=== PATIENT | female | born 1995 | race Caucasian/White ===

== ENCOUNTER 2020-01-18 12:33 | Outpatient (CLI) | payer OTHER, SELFPAY ==
--- NOTE | ~2020-01-18 | US_ITS ---
EXAMINATION: US OB <= 14 weeks fetus DATE: 01/18/2020 13:07 INDICATION: Gestational dating TECHNIQUE: Real-time transabdominal obstetric ultrasound. FINDINGS: No prior studies for comparison. The uterus measures 11.2 x 9.1 x 9.1 cm. There is an intrauterine gestational sac, with pole id entified. The crown rump length measures 5.3 cm, which correlates with a estimated gestational age o f 12 weeks 0 days. heart tones are identified measuring 167. There is a septated 2.9 cm corpu s luteal cyst right ovary. IMPRESSION: 1. SL IUP with an EGA of 12 weeks, 0 days (EDC by current ultrasound of 08/01/2020). 2: Septated corpus luteal cyst right ovary measuring 2.9 cm. Reviewed, dictated and finalized at location A. IMPRESSION: 1. SL IUP with an EGA of 12 weeks, 0 days (EDC by current ultrasound of 020). 2: Septated corpus luteal cyst right ovary measuring 2.9 cm.
== END 2020-01-18 12:34 | disposition home or self-care (01) ==
LOC: ANHIMG 12:39
PROVIDERS: Visit Provider Student in an Organized Health Care Education/Training Program
DX: Z36.9 Encounter for antenatal screening, unspecified (principal); Z3A.12 12 weeks gestation of pregnancy
CPT/HCPCS: 76801

== ENCOUNTER 2020-03-14 17:07 | Outpatient (CLI) | payer OTHER, SELFPAY ==
[2020-03-14 18:02] LABS: Add Urine Microscopic? NO; Appearance Urine Clear (Clear); Bilirubin Urine Negative (Negative); Blood Urine Negative (Negative); Color Urine Colorless (Yellow); Glucose Urine UA Negative (Negative); Ketones Urine Negative (Negative); Leukocyte Esterase Ur Negative LEU/UL (NEGATIVE); Nitrate Urine Negative (Negative); Protein Urine Negative (Negative); Urobilinogen Urine Negative mg/dL (<2.0)
[2020-03-14 18:05] LABS: Specific Grav Ur 1.003 (1.001-1.035)
== END 2020-03-14 17:08 | disposition home or self-care (01) ==
PROVIDERS: Visit Provider Student in an Organized Health Care Education/Training Program
DX: Z34.90 Encounter for supervision of normal pregnancy, unspecified, unspecified trimester (principal)
CPT/HCPCS: 81003; 87086

== ENCOUNTER 2020-03-28 10:33 | Outpatient (CLI) | payer OTHER, SELFPAY ==
[2020-03-28 11:10] LABS: Basophils Percent Auto 0.3 % (0.2-1.2); Eosinophils Absolute Auto 0.1 K/mm3 (0-0.3); Eosinophils Percent Auto 0.7 % (0-4.4); Hematocrit 30.9 % (37.0-47.0); Hemoglobin 10.5 g/dL (12.0-15.0); Immature Granulocyte Absolute 0.03 K/mm3 (0.00-0.031); Immature Granulocyte Percent A 0.4 % (0-0.5); Lymphocytes Absolute Auto 0.95 K/mm3 (0.9-3.2); Lymphocytes Percent Auto 13.1 % (18.3-44.2); Mean Corpuscular Hemoglobin 32.4 pg (26-34); Mean Corpuscular Volume 95.4 fl (80-100); Mean Platelet Volume 10.8 fl (7.4-10.4); Monocytes Absolute Auto 0.3 K/mm3 (0.1-0.6); Monocytes Percent Auto 4.4 % (2.6-8.5); Neutrophils Absolute Auto 5.9 K/mm3 (1.3-6.7); Neutrophils Percent Auto 81.1 % (45.5-73.1); Platelet Count Result 159 k/mm3 (150-375); Red Blood Count 3.24 M/mm3 (4.2-5.4); Red Cell Distribution Width 12.8 % (11.5-14.5); White Blood Count 7.3 K/mm3 (4.5-10.0)
[2020-03-28 11:59] LABS: Hepatitis B Surface Antigen Negative (Negative); Rubella IgG Antibody 17.1 IU/ML
[2020-03-28 12:14] LABS: HIV 1/2 Ab P24 Ag Result Negative (Negative); Hepatitis C Virus Antibody Negative (Negative)
[2020-03-29 07:43] LABS: Rapid Plasma Reagin Non-Reactive (NonReactive)
[2020-04-02 12:20] LABS: Hematocrit 33.7 % (35.0-45.0); Hemoglobin 10.8 g/dL (11.7-15.5); MCH 33.3 pg (27.0-33.0); RDW 15.5 % (11.0-15.0); Red Blood Cell Count 3.24 Mill/uL (3.80-5.10)
== END 2020-03-28 10:34 | disposition home or self-care (01) ==
LOC: ANHLAB 10:35
PROVIDERS: Visit Provider Student in an Organized Health Care Education/Training Program
DX: Z34.90 Encounter for supervision of normal pregnancy, unspecified, unspecified trimester (principal)
CPT/HCPCS: 36415; 83021; 84443; 85025; 86592; 86703; 86762; 86787; 86803; 86850; 86900; 86901; 87340; 99212; G0432; G0463

== ENCOUNTER 2020-05-21 07:33 | Outpatient (CLI) | payer OTHER, SELFPAY ==
[2020-05-21 09:10] LABS: Basophils Percent Auto 0.3 % (0.2-1.2); Eosinophils Absolute Auto 0.1 K/mm3 (0-0.3); Eosinophils Percent Auto 0.8 % (0-4.4); Hematocrit 29.8 % (37.0-47.0); Hemoglobin 10.2 g/dL (12.0-15.0); Immature Granulocyte Absolute 0.02 K/mm3 (0.00-0.031); Immature Granulocyte Percent A 0.3 % (0-0.5); Immature Platelet Fraction Pct 6.1 % (0.9-11.2); Lymphocytes Absolute Auto 1.13 K/mm3 (0.9-3.2); Lymphocytes Percent Auto 15.2 % (18.3-44.2); Mean Corpuscular HGB Conc 34.2 g/dl (32-36); Mean Corpuscular Hemoglobin 31.7 pg (26-34); Mean Corpuscular Volume 92.5 fl (80-100); Mean Platelet Volume 11.1 fl (7.4-10.4); Monocytes Absolute Auto 0.4 K/mm3 (0.1-0.6); Monocytes Percent Auto 5.8 % (2.6-8.5); Neutrophils Absolute Auto 5.8 K/mm3 (1.3-6.7); Neutrophils Percent Auto 77.6 % (45.5-73.1); Platelet Count Result 134 k/mm3 (150-375); Red Blood Count 3.22 M/mm3 (4.2-5.4); Red Cell Distribution Width 12.2 % (11.5-14.5); White Blood Count 7.4 K/mm3 (4.5-10.0)
[2020-05-21 09:19] LABS: Glucose 1 Hour PP 50gm Dose 88 mg/dL
== END 2020-05-21 07:34 | disposition home or self-care (01) ==
LOC: ANHLAB 07:34
PROVIDERS: Visit Provider Student in an Organized Health Care Education/Training Program
DX: Z34.02 Encounter for supervision of normal first pregnancy, second trimester (principal)
CPT/HCPCS: 36415; 82947; 85025; 85055; 99212; G0463

== ENCOUNTER 2020-07-05 08:40 | Outpatient (CLI) | payer OTHER, SELFPAY ==
[2020-07-05 09:22] LABS: Basophils Percent Auto 0.2 % (0.2-1.2); Eosinophils Absolute Auto 0.1 K/mm3 (0-0.3); Eosinophils Percent Auto 0.6 % (0-4.4); Hematocrit 32.9 % (37.0-47.0); Hemoglobin 11.2 g/dL (12.0-15.0); Immature Granulocyte Absolute 0.04 K/mm3 (0.00-0.031); Immature Granulocyte Percent A 0.5 % (0-0.5); Lymphocytes Absolute Auto 1.29 K/mm3 (0.9-3.2); Lymphocytes Percent Auto 14.7 % (18.3-44.2); Mean Corpuscular Hemoglobin 31.9 pg (26-34); Mean Corpuscular Volume 93.7 fl (80-100); Monocytes Absolute Auto 0.5 K/mm3 (0.1-0.6); Monocytes Percent Auto 5.4 % (2.6-8.5); Neutrophils Absolute Auto 6.9 K/mm3 (1.3-6.7); Neutrophils Percent Auto 78.6 % (45.5-73.1); Platelet Count Result 139 k/mm3 (150-375); Red Blood Count 3.51 M/mm3 (4.2-5.4); White Blood Count 8.8 K/mm3 (4.5-10.0)
[2020-07-05 10:00] LABS: HIV 1/2 Ab P24 Ag Result Negative (Negative)
[2020-07-06 11:13] LABS: Rapid Plasma Reagin Non-Reactive (NonReactive)
== END 2020-07-05 08:41 | disposition home or self-care (01) ==
LOC: ANHLAB 08:43
PROVIDERS: PCP Student in an Organized Health Care Education/Training Program; Visit Provider Student in an Organized Health Care Education/Training Program
DX: Z34.90 Encounter for supervision of normal pregnancy, unspecified, unspecified trimester (principal)
CPT/HCPCS: 36415; 85025; 86592; 86703; 99212; G0432; G0463

== ENCOUNTER 2020-07-29 15:37 | Inpatient (IN) | payer OTHER, MEDICAID, SELFPAY ==
[2020-07-29] VITALS (64 sets, daily range): BP systolic 97–132; BP diastolic 57–88; PULSE 58–104; TEMP 36.8–37.4; O2SAT 98–100
[2020-07-29 17:53] LABS: Basophils Percent Auto 0.1 % (0.2-1.2); Eosinophils Percent Auto 0.1 % (0-4.4); Hematocrit 37.6 % (37.0-47.0); Hemoglobin 13.2 g/dL (12.0-15.0); Immature Granulocyte Absolute 0.04 K/mm3 (0.00-0.031); Immature Granulocyte Percent A 0.3 % (0-0.5); Lymphocytes Absolute Auto 1.11 K/mm3 (0.9-3.2); Lymphocytes Percent Auto 7.8 % (18.3-44.2); Mean Corpuscular HGB Conc 35.1 g/dl (32-36); Mean Corpuscular Hemoglobin 32.5 pg (26-34); Mean Corpuscular Volume 92.6 fl (80-100); Mean Platelet Volume 12.5 fl (7.4-10.4); Monocytes Absolute Auto 0.7 K/mm3 (0.1-0.6); Monocytes Percent Auto 5.1 % (2.6-8.5); Neutrophils Absolute Auto 12.3 K/mm3 (1.3-6.7); Neutrophils Percent Auto 86.6 % (45.5-73.1); Platelet Count Result 155 k/mm3 (150-375); Red Blood Count 4.06 M/mm3 (4.2-5.4); White Blood Count 14.2 K/mm3 (4.5-10.0)
[2020-07-29] MEDS: AMPICILLIN 2 GM/NS 100 ML 2 GM/100 ML BAG IVPB (17:57)
[2020-07-29] MEDS: LACTATED RINGERS 1,000 ML 125 ML IV CONT ×2 (17:57→20:58)
[2020-07-29 18:10] LABS: Amphetamine Screen Urine Negative (Negative); Barbiturate Screen Urine Negative (Negative); Benzodiazepines Screen Urine Negative (Negative); Cannabinoid Screen Urine Positive (Negative); Cocaine Screen Urine Negative (Negative); Methadone Screen Urine Negative (Negative); Opiate Screen Urine Negative (Negative); Phencyclidine Screen Urine Negative (Negative)
--- NOTE | 2020-07-29 18:33 | LDADM ---
This patient, Tamika Bone, was admitted to Labor/Delivery/Recovery 105 on 07/29/20 at 15:37. Plans for labor, pain management and were discussed with patient. Patient/family oriented to hospital policies and general routines including ID bracelet, bed and alarms, visiting hours, pain management, procedures, bathroom and other care routines, personal items, smoking policy, room service/diet and guest tray routines, security routines,call light, and visiting hours. Patient/Family are encouraged to report perceived risks to care and to ask questions if they do not understand what they are told or what they should do. See OBIX for further documentation.
--- NOTE | 2020-07-29 20:01 | WPDANESEPP ---
Anes - Eval Pre Procedure Procedure: labor epidural Date/Time: 07/29/20 20:01 Surgeon: marvin Pre Op Diagnosis: Labor Patient Data Age: 24 Gender: F Height: Weight: Last Vital Signs Temp 36.8 C 07/29/20 19:29 Pulse 61 07/29/20 19:19 BP 132/81 07/29/20 19:19 Allergies Allergy/AdvReac Type Severity Reaction Status Date / Time No Known Allergies Allergy Verified 07/26/20 09:10 Home Medications Medication Instructions Recorded Confirmed Type buprenorphine HCl 2 mg sublingual 2 mg SUBLINGUAL DAILY 01/16/20 History tablet vits 75-iron 28 mg-folic pkg PO 01/16/20 History acid 800 mcg-omega-3 oral combo pack ondansetron HCl 4 mg tablet 4 mg PO Q8H PRN #30 tablet 04/26/20 04/26/20 Rx ferrous sulfate 325 mg (65 mg 325 mg PO DAILY #90 tablet 05/22/20 05/22/20 Rx iron) tablet Laboratory Tests 07/29/20 07/29/20 07/29/20 17:36 17:36 17:36 WBC 14.2 K/mm3 H K/mm3 (4.5-10.0) RBC 4.06 M/mm3 L M/mm3 (4.2-5.4) Hgb 13.2 g/dL g/dL (12.0-15.0) Hct 37.6 % % (37.0-47.0) MCV 92.6 fl fl (80-100) MCH 32.5 pg pg (26-34) MCHC 35.1 g/dl g/dl (32-36) RDW 13.0 % % (11.5-14.5) Plt Count 155 k/mm3 k/mm3 (150-375) MPV 12.5 fl H fl (7.4-10.4) Immature Gran % (Auto) 0.3 % % (0-0.5) Neut % (Auto) 86.6 % H % (45.5-73.1) Lymph % (Auto) 7.8 % L % (18.3-44.2) Banner % (Auto) 5.1 % % (2.6-8.5) Eos % (Auto) 0.1 % % (0-4.4) Baso % (Auto) 0.1 % L % (0.2-1.2) Lymph # (Auto) 1.11 K/mm3 K/mm3 (0.9-3.2) Banner # (Auto) 0.7 K/mm3 H K/mm3 (0.1-0.6) Eos # (Auto) 0.0 K/mm3 K/mm3 (0-0.3) Baso # (Auto) 0.0 K/mm3 K/mm3 (0.0-0.1) Abs Immat Gran (auto) 0.04 K/mm3 H K/mm3 (0.00-0.031) Absolute Neuts (auto) 12.3 K/mm3 H K/mm3 (1.3-6.7) Absolute Nucleated RBC 0.0 K/mm3 K/mm3 (0.0-0.012) Nucleated RBC % 0.0 % % (0.0-0.2) Urine Opiates Screen Urine Methadone Screen Ur Barbiturates Screen Ur Phencyclidine Scrn Ur Amphetamine Screen U Benzodiazepines Scrn Urine Cocaine Screen U Cannabinoids Screen RPR Pending Blood Type A Positive Antibody Screen Negative 07/29/20 17:36 WBC RBC Hgb Hct MCV MCH MCHC RDW Plt Count MPV Immature Gran % (Auto) Neut % (Auto) Lymph % (Auto) Banner % (Auto) Eos % (Auto) Baso % (Auto) Lymph # (Auto) Banner # (Auto) Eos # (Auto) Baso # (Auto) Abs Immat Gran (auto) Absolute Neuts (auto) Absolute Nucleated RBC Nucleated RBC % Urine Opiates Screen Negative (Negative) Urine Methadone Screen Negative (Negative) Ur Barbiturates Screen Negative (Negative) Ur Phencyclidine Scrn Negative (Negative) Ur Amphetamine Screen Negative (Negative) U Benzodiazepines Scrn Negative (Negative) Urine Cocaine Screen Negative (Negative) U Cannabinoids Screen Positive A (Negative) RPR Blood Type Antibody Screen Patient hx anesthesia problems: none Family hx anesthesia problems: none PMFSH Past Medical History Medical History Anxiety History of opioid abuse Marijuana use Surgical History Surgical History No pertinent past surgical history Family History Family History Grandparent Diabetes mellitus Grandparent Crohn disease Grandparent Spinal stenosis Mother Spinal stenosis Social History Social History (Reviewed 07/26/20 @ 09:11 by Sayra Braga
--- NOTE | 2020-07-29 21:08 | PM.IMHP ---
H&P: HPI History of Present Illness Date/Time: 07/29/20 21:08 Patient 38 6/7 weeks by LMP 10/31/19 with an EDC 08/06/20 consistent with 12 week ultrasound. presented to L and D for decrease movement. Tracing significant for three moderate variables in 20 minutes.She was also having moderate contractions every 5 min. She was recommended for admission due to nonreassuring tracing. Her cervical exam was 2/80%. She appears to be in early labor. PNC sigificant for history of opiod abuse. She has been on buprenorphion for over five years. Also history of marijuana use and tobacco use during . Mild thrombocytopenia the lowest platelet 134 in May. 139 in Jun. labs reviewed. GBS positive. Chief complaint: Labor Narrative: Tamika Bone is a 24 year old female Review of Systems Review of Systems: All systems reviewed & are unremarkable except as noted in HPI and below Constitutional: Constitutional: Reports no additional constitutional complaints and Denies headache(s) ENT: Reports system reviewed and no additional complaints, except as documented and Denies headache(s) Cardiovascular: Cardiovascular: Denies chest pain and Denies dyspnea Respiratory: Respiratory: Denies dyspnea Gastrointestinal: Gastrointestinal: Reports no additional gastrointestinal complaints Genitourinary: Genitourinary: Reports amenorrhea Musculoskeletal: Musculoskeletal: Reports no additional musculoskeletal complaints Neurologic: Denies headache(s) Psychiatric: Psychiatric: Reports no additional psychiatric complaints PMFSH Past Medical History Medical History Anxiety History of opioid abuse Marijuana use Surgical History Surgical History No pertinent past surgical history Family History Family History Grandparent Diabetes mellitus Grandparent Crohn disease Grandparent Spinal stenosis Mother Spinal stenosis Social History Social History Smoking status: Current every day smoker Tobacco type: cigarettes Second hand tobacco smoke exposure: No Additional smoking assessment comments: Pt smokes cigarettes and marijuana. Pt has open conversations with Alcohol intake: former Substance use: current Substance use type: marijuana and opiates Other substance usage details: H/O OF OPIOID ABUSE--HAS BEEN TAKING BUPRENORPHINE FOR THE LAST 5 YEARS Last use: 07/07/20 Spiritual care concerns: No Meds Home Medications and Allergies Home Medications Medication Instructions Recorded Confirmed Type buprenorphine HCl 2 mg sublingual 2 mg SUBLINGUAL DAILY 01/16/20 History tablet vits 75-iron 28 mg-folic pkg PO 01/16/20 History acid 800 mcg-omega-3 oral combo pack ondansetron HCl 4 mg tablet 4 mg PO Q8H PRN #30 tablet 04/26/20 04/26/20 Rx ferrous sulfate 325 mg (65 mg 325 mg PO DAILY #90 tablet 05/22/20 05/22/20 Rx iron) tablet Allergies Allergy/AdvReac Type Severity Reaction Status Date / Time No Known Allergies Allergy Verified 07/26/20 09:10 Vital Signs Vital Signs - 24 hr 07/29/20 16:04 07/29/20 19:19 07/29/20 19:29 Temperature 99.3 F 98.2 F Pulse Rate 61 Blood Pressure 132/81 Pulse Oximetry 07/29/20 20:10 07/29/20 20:21 07/29/20 20:26 Temperature Pulse Rate 62 67 Blood Pressure 118/64 118/70 Pulse Oximetry 100 100 07/29/20 20:31 07/29/20 20:34 07/29/20 20:35 Temperature Pulse Rate 90 79 82 Blood Pressure 128/72 107/88 127/69 Pulse Oximetry 100 07/29/20 20:36 07/29/20 20:38 07/29/20 20:39 Temperature Pulse Rate 81 Blood Pressure 116/57 L Pulse Oximetry 100 100 07/29/20 20:40 07/29/20 20:43 07/29/20 20:44 Temperature Pulse Rate 65 87 Blood Pressure 130/67 123/69 Pulse Oximetry 100 07/29/20 20:45 1
--- NOTE | 2020-07-29 21:25 | PHAR ---
Pharmacy verified home med Buprenorphine 2 mg SL tablet per bottle: dissolve one tablet under tongue three times daily per nurse: patient uses half tablet instead of whole tablet
--- NOTE | 2020-07-29 21:35 | P.PNOB_ITS ---
OB - PN: Subj Subjective Date/time seen: 07/29/20 21:35 FHT 130 Cat 1, ctx moderate q 2. cervix reported at 2.5. She request epidural. Continue expectant management since cervical change. OB - PN: Obj Data Labs CBC & Chem 7: 07/29/20 17:36 Labs: Laboratory Results - last 24 hr 07/29/20 07/29/20 07/29/20 17:36 17:36 17:36 WBC 14.2 H RBC 4.06 L Hgb 13.2 Hct 37.6 MCV 92.6 MCH 32.5 MCHC 35.1 RDW 13.0 Plt Count 155 MPV 12.5 H Immature Gran % (Auto) 0.3 Neut % (Auto) 86.6 H Lymph % (Auto) 7.8 L Chambers % (Auto) 5.1 Eos % (Auto) 0.1 Baso % (Auto) 0.1 L Lymph # (Auto) 1.11 Chambers # (Auto) 0.7 H Eos # (Auto) 0.0 Baso # (Auto) 0.0 Abs Immat Gran (auto) 0.04 H Absolute Neuts (auto) 12.3 H Absolute Nucleated RBC 0.0 Nucleated RBC % 0.0 Urine Opiates Screen Negative Urine Methadone Screen Negative Ur Barbiturates Screen Negative Ur Phencyclidine Scrn Negative Ur Amphetamine Screen Negative U Benzodiazepines Scrn Negative Urine Cocaine Screen Negative U Cannabinoids Screen Positive A Blood Type A Positive Antibody Screen Negative OB - PN A/P Time Spent With Patient Time: Total time spent is greater than 50% in coordination of care (as documented) at patient's floor/unit and/or counseling patient:
[2020-07-29] MEDS: AMPICILLIN 1 GM/NS 50 ML 1 GM/50 ML BAG IVPB (22:02)
[2020-07-29] MEDS: OXYTOCIN 30 UNITS/NS 500 ML 30 UNITS/500 ML BAG IV CONT (23:59)
[2020-07-30] VITALS (160 sets, daily range): BP systolic 87–135; BP diastolic 52–101; PULSE 53–102; RESP 16–18; TEMP 36.1–36.9; O2SAT 98–100
[2020-07-30] MEDS: AMPICILLIN 1 GM/NS 50 ML 1 GM/50 ML BAG IVPB ×2 (03:06→07:02)
[2020-07-30] MEDS: LACTATED RINGERS 1,000 ML 125 ML IV CONT (03:07)
--- NOTE | 2020-07-30 08:02 | PM.OBPNLAB ---
Pain Control Date/time seen: 07/30/20 08:02 Patient doing well. Comfortable with epidural. SVE 5-6//-1. AROM, clear fluid noted. EFM with occ variable decelerations after AROM. Otherwise, reassuring. Will continue pitocin.
[2020-07-30 08:22] LABS: Rapid Plasma Reagin Non-Reactive (NonReactive)
[2020-07-30] MEDS: ONDANSETRON INJ 4 MG/2 ML VIAL IV PUSH (08:46)
--- NOTE | 2020-07-30 11:18 | PM.OBPRVD ---
OB - Delivery Note Procedure Delivery date: 07/30/20 Procedure: Patient is a 24-year-old now who presented to Labor and delivery on 07/29/20 at 38 weeks and 6 days gestation with complaints of decreased movement. Patient was noted to be susannah approximately every 5 minutes. monitoring showed variable decelerations. Due to nonreassuring tracing in the setting of early labor, decision was made to admit patient to labor and delivery and proceed with induction/augmentation. Initial cervical exam was 2 cm dilated 80% effaced. Induction of labor was started with Pitocin. Patient was GBS positive and antibiotics were administered for GBS prophylaxis. Pitocin was continued to be titrated throughout the evening and morning of 07/30/2020. Patient made progress cervical change. Variable decelerations as well as occasional late decelerations were noted on monitoring, however, the tracing recovered after each episode. Patient requested an epidural for pain management which was placed without difficulty. Artificial rupture membranes was performed at 7:56 a.m. Clear amniotic fluid was noted. Cervical exam was approximately 6 cm dilated. Patient continued to make progressive cervical change and was noted to be fully dilated at 10:36 a.m. Patient was encouraged to push and found to be pushing well. She was prepped and draped for delivery. At 10:47 a.m., patient delivered infant head atraumatically without difficulty in LETHA presentation. Occiput restituted to maternal left side. Compound presentation was noted as a hand delivered alongside face. A nuchal cord x1 was noted and reduced. With subsequent push, 's neck, shoulders, rest of body were delivered without difficulty. was crying spontaneously. Nose and mouth were suctioned with bulb suction. The infant was placed on maternal abdomen with care was assumed by waiting pediatric staff. Delayed cord clamping was performed for approximately 60 seconds. The cord was clamped and cut. A segment of cord was collected for cord gases. Cord blood was collected. The placenta was delivered spontaneous and intact. On inspection, a second-degree perineal laceration was noted. This laceration was repaired with 2-0 and 3-0 Vicryl in the usual fashion. Excellent hemostasis was noted. Uterine fundus was noted to be firm with bimanual massage. The patient was cleansed and dried. was a live-born male , Apgars 8 and 9, weighing 7 lb 5 oz. Routine care to continue. events: Labor Induction Induction method: per pitocin protocol Delivery augmentation: rupture of membranes Delivery monitor: external FHT and external uterine Route of delivery: Laceration description: Perineal - 2nd Degree Delivery repair: vicryl (2-0 and 3-0 vicryl) Specimen: Yes (cord blood, cord gases, and placenta) Estimated blood loss (mL): 250 Anesthesia type: Epidural Disposition: floor Complications: No immediate complications [place] Baby Date of : 07/30/20 Time of : 10:47 Weeks of gestation at delivery: 39 Infant gender: Male Weight (pounds): 7 Weight (ounces): 5 presentation: vertex position: Left Occiput Anterior Placenta delivery description: Spontaneous cord vessel description: 3 Vessels, Nuchal Cord (x1) and Clamped/Cut score one minute: 8 score five minutes: 9
[2020-07-30] MEDS: OXYTOCIN 30 UNITS/NS 500 ML 30 UNITS/500 ML BAG 125 UNITS IV CONT (11:25)
[2020-07-30] MEDS: WITCH HAZEL 40 PADS 1 PAD TOPICAL (12:36)
[2020-07-30] MEDS: ACETAMINOPHEN 325 MG TABLET 650 MG PO ×2 (12:36→19:49)
[2020-07-30] MEDS: BENZOCAINE 20% AER SPR (*SP) 56 GM CAN 1 SPRAY TOPICAL (12:36)
--- NOTE | 2020-07-30 15:24 | PCCCNOTE ---
Care Coordination. Pt. referred to [facility] for postive UDS for marijuana and history of opiate use about 5 years ago. Met with pt. and FOB at bedside. Pt. reports having all necessary baby care items, setup with WIC, and has food stamps. She reports plans to return home with FOB and her mother plans to stay with them for about a month. Pt. reports seeing Dr. Stein who prescribes her subutex for the last 5 years. She has transitioned down to 1mg and reports plans to come off of it soon. She denies needs for counseling and reports Dr. Stein and his PA, Parker, are supportive and 'residential counselor' her as well. Pt. reports this is her first baby. She denies substance abuse or community resource information needed. Spoke with Zach Escobar from [facility] Hotline who documented pt.'s situation and will not be taking a report unless infant meconium is positive for something other than THC (Intake ID#[id number]).
[2020-07-31] MEDS: ACETAMINOPHEN 325 MG TABLET 650 MG PO (05:17)
[2020-07-31] MEDS: DOCUSATE SODIUM 100 MG CAPSULE PO ×2 (07:12→16:05)
[2020-07-31] MEDS: IBUPROFEN 600 MG TABLET PO ×2 (07:12→16:17)
[2020-07-31 08:00] VITALS: BP 117/72; PULSE 73; RESP 18; TEMP 36.4; O2SAT 100
--- NOTE | 2020-07-31 08:02 | P.PNOB_ITS ---
OB - PN: Subj Subjective Date/time seen: 07/31/20 08:02 Patient doing well. Pain well controlled with medication. Minimal-moderate lochia. Denies any headache, chest pain, SOB, N/V. OB - PN: Obj Data Labs CBC & Chem 7: 07/29/20 17:36 Labs: Laboratory Results - last 24 hr 07/29/20 17:36 RPR Non-reactive OB - PN A/P Assessment and Plan (1) Normal spontaneous vaginal delivery: Code(s): O80 - Encounter for full-term uncomplicated delivery Status: Acute Assessment and Plan: PPD#1 Doing well Continue routine care Pain management PRN Anticipate dc home tomorrow Time Spent With Patient Time: Total time spent is greater than 50% in coordination of care (as documented) at patient's floor/unit and/or counseling patient: Review of Systems Constitutional: Constitutional: Reports as per HPI and Reports no additional constitutional complaints Genitourinary: Genitourinary: Reports no additional female genitourinary co mplaints and Reports as per HPI Exam Const: General: cooperative, healthy appearing, comfortable and no acute distress GI: Inspection: non-distended GI Palp: Yes Soft to palpation and No Tenderness to palpation present (GI) Other: fundus firm below umbilicus Extrem: Right lower extremity: no edema Left lower extremity: no edema Other: no calf tenderness
[2020-07-31 09:24] LABS: Hematocrit 29.9 % (37.0-47.0); Hemoglobin 10.2 g/dL (12.0-15.0)
--- NOTE | 2020-07-31 11:16 | WPDANLDPN2 ---
Anes-Prog Note L&D Date/Time: 07/31/20 11:16 Comfortable throughout: labor and delivery Neuraxial method: epidural Epidural/Spinal procedure site: clean & non-tender Neuro status: Neuro function grossly intact. Cardiovascular status: normal Respiratory status: normal Airway patency: baseline Mental status: baseline Post-Op hydration status: normal Vital Signs: Last Vital Signs Temp 36.4 C L 07/31/20 08:00 Pulse 73 07/31/20 08:00 Resp 18 07/31/20 08:00 BP 117/72 07/31/20 08:00 Pulse Ox 100 07/31/20 08:00 Pain score (VAS): 0 Post-procedural complaints: none Patient feedback: Patient satisfied with anesthetic care.
[2020-07-31 19:45] VITALS: BP 104/60; PULSE 75; RESP 18; TEMP 36.8; O2SAT 98
[2020-08-01] MEDS: IBUPROFEN 600 MG TABLET PO ×3 (04:45→18:15)
[2020-08-01] MEDS: ACETAMINOPHEN 325 MG TABLET 650 MG PO ×2 (07:40→16:10)
[2020-08-01] MEDS: DOCUSATE SODIUM 100 MG CAPSULE PO ×2 (07:40→16:10)
[2020-08-01] MEDS: TETANUS,DIPHTHERIA,AC PERTUSSIS ADULT (0.5 ML) BOOSTRIX IM (07:41)
[2020-08-01 08:15] VITALS: BP 122/77; PULSE 68; RESP 16; TEMP 36.4; O2SAT 100
--- NOTE | 2020-08-01 09:44 | P.PNOB_ITS ---
OB - PN: Subj Subjective Date/time seen: 08/01/20 09:44 Patient doing well. Pain/cramping well controlled with medication. Minimal lochia. Denies any headache, chest pain, SOB, N/V. OB - PN: Obj Data Labs CBC & Chem 7: 07/31/20 09:05 OB - PN A/P Assessment and Plan (1) Normal spontaneous vaginal delivery: Code(s): O80 - Encounter for full-term uncomplicated delivery Status: Acute Assessment and Plan: PPD#2 patient doing well dc home in stable condition emergency precautions reviewed f/u in office in 4-6 weeks for visit Time Spent With Patient Time: Total time spent is greater than 50% in coordination of care (as doc umented) at patient's floor/unit and/or counseling patient: Review of Systems Review of Systems: All systems reviewed & are unremarkable except as noted in HPI and below Exam Const: General: cooperative, healthy appearing, comfortable and no acute distress GI: Inspection: normal to inspection and non-distended GI Palp: Yes Soft to palpation and No Tenderness to palpation present (GI) Other: fundus firm below umbilicus Extrem: Right lower extremity: no edema Left lower extremity: no edema Other: no calf tenderness
--- NOTE | 2020-08-01 10:14 | PM.OBDSVD ---
DS: Admitting Diagnosis Admitting Diagnosis Admitting Diagnosis: Labor OB - DS: Summary OB Procedures : None OB Procedures Intrapartum: Spontaneous Vag Delivery OB Procedures: : None Time Spent with Patient Time attestation: Total time spent providing and/or coordinating discharge services: DS: Data Data Completed and Pending Pending studies at discharge: Pending at discharge 07/30/20 11:43 Surgical [PTH] Routine Discharge Plan Discharge Attending physician on discharge: Valencia Dodson Discharging Clinician: Valencia Dodson Anticipated Discharge Date/Time: 08/01/20 10:15 Patient Disposition: Home, Self-Care Activity: as tolerated and pelvic rest Diet: regular Discharge Instructions: Call office ([phone]) to schedule a visit in 4-6 weeks. You may take Ibuprofen 600mg every 6 hours as needed for pain. Pain medication may make you constipated. It may be helpful to take an [id number] stool softener, such as Colace and/or Senokot, along with the pain medication to help lessen constipation. Call office or go to ED for pain not controlled with medication, headache, chest pain, shortness of breath, fever, chills, persistent nausea or vomiting, severe abdominal pain, heavy vaginal bleeding >2 pads/hour, foul vaginal discharge or odor, or problems with your breasts. Patient Instructions: Antibiotic Form, How to Stop Smoking (GEN) Stand Alone Forms: General Discharge Information Follow-up/Referrals: Valencia Dodson MD [Primary Care Provider] - Discharge Medications: Continued One A Day Women's DHA 28 mg iron- 800 mcg combo pack PO RF: 0 buprenorphine HCl 2 mg tablet, sublingual 2 mg SUBLINGUAL DAILY RF: 0 Discontinued ondansetron HCl [Zofran] 4 mg tablet 4 mg PO Q8H PRN (Reason: nausea and vomiting) Qty: 30 RF: 0 ferrous sulfate 325 mg (65 mg iron) tablet 325 mg PO DAILY Qty: 90 RF: 0 Date of admission: 07/29/20 15:37 Primary Care Provider: Valencia Dodson Admitting Provider: Valencia Dodson Attending physician on admission: Valencia Dodson Condition: Stable
[2020-08-01] MEDS: WITCH HAZEL 40 PADS 1 PAD TOPICAL (12:37)
[2020-08-01] MEDS: BENZOCAINE 20% AER SPR (*SP) 56 GM CAN 1 SPRAY TOPICAL (18:15)
== END 2020-08-01 18:15 | disposition home or self-care (01) | DRG 806 ==
LOC: ANHLDR 07-30 14:44 → ANHOB2 07-30 15:18
PROVIDERS: Admitting Provider Obstetrics & Gynecology; PCP Student in an Organized Health Care Education/Training Program; Visit Provider Student in an Organized Health Care Education/Training Program
DX: O36.8130 Decreased fetal movements, third trimester, not applicable or unspecified (principal); O99.12 Other diseases of the blood and blood-forming organs and certain disorders involving the immune mechanism complicating childbirth; Z37.0 Single live birth; O99.324 Drug use complicating childbirth; O70.1 Second degree perineal laceration during delivery; O99.334 Smoking (tobacco) complicating childbirth; F17.210 Nicotine dependence, cigarettes, uncomplicated; O99.824 Streptococcus B carrier state complicating childbirth; O32.6XX0 Maternal care for compound presentation, not applicable or unspecified; O69.1XX0 Labor and delivery complicated by cord around neck, with compression, not applicable or unspecified; D69.6 Thrombocytopenia, unspecified; O76 Abnormality in fetal heart rate and rhythm complicating labor and delivery; Z3A.38 38 weeks gestation of pregnancy; O36.8330 Maternal care for abnormalities of the fetal heart rate or rhythm, third trimester, not applicable or unspecified; F12.90 Cannabis use, unspecified, uncomplicated
CPT/HCPCS: 36415; 80307; 85014; 85018; 85025; 86592; 86850; 86900; 86901; 88307; 90715; A9270; J0290; J2405; J2590; J2795; J7120

== ENCOUNTER 2022-12-17 08:39 | Emergency (ER) | payer OTHER, SELFPAY ==
[2022-12-17 08:48] VITALS: BP 124/71; PULSE 96; RESP 16; TEMP 36.8; O2SAT 100
--- NOTE | 2022-12-17 09:10 | ED.GENADULT ---
HPI - General Adult General Chief complaint: Dental/Oral Stated complaint: FACIAL SWELLING/PAIN S/P DENTAL Time Seen by Provider: 12/17/22 09:01 Source: patient Mode of arrival: ambulatory Limitations: no limitations History of Present Illness HPI narrative: Patient is a 26-year-old female that had 3 crowns put on Thursday to teeth 18 through 20. States jaw began to swell last night unable to sleep due to pain. Tender with eating, states that happen when the temporary crowns were on as well. Call dentist last night in the ED and they did not returned her phone sunil. l Related Data Allergies Allergy/AdvReac Type Severity Reaction Status Date / Time No Known Allergies Allergy Verified 12/17/22 08:58 Review of Systems Review of Systems: All systems reviewed & are unremarkable except as noted in HPI and below Constitutional: Constitutional: Denies body ache(s), Denies fever(s), Denies headache(s), Denies malaise and Denies weakness Eyes: Eyes: Reports no additional eye complaints and Denies loss of vision ENT: Reports system reviewed and no additional complaints, except as documented, Reports dental pain, Denies otalgia, Denies headache(s), Denies nasal discharge, Denies sinus pain and Denies sore throat Cardiovascular: Cardiovascular: Reports no additional cardiovascular complaints, Denies chest pain, Denies irregular heart rhythm and Denies dyspnea Respiratory: Respiratory: Reports no additional respiratory complaints and Denies dyspnea Gastrointestinal: Gastrointestinal: Reports no additional gastrointestinal complaints, Denies abdominal pain, Denies melena, Denies hematochezia, Denies diarrhea, Denies nausea and Denies vomiting Musculoskeletal: Musculoskeletal: Reports no additional musculoskeletal complaints, Denies back pain, Denies myalgias and Denies arthralgias Integumentary/Breasts: Skin/Breast: Reports system reviewed and no additional complaints, except as docu, Denies pruritus and Denies rash Neurologic: Reports system reviewed and no additional complaints, except as documented, Denies headache(s), Denies loss of vision and Denies weakness Psychiatric: Psychiatric: Reports no additional psychiatric complaints PMFSH Past Medical History Medical History Anxiety History of opioid abuse Marijuana use Surgical History Surgical History No pertinent past surgical history Family History Family History Grandparent Diabetes mellitus Grandparent Crohn disease Grandparent Spinal stenosis Mother Spinal stenosis Social History Social History Smoking status: Current every day smoker Tobacco type: cigarettes Second hand tobacco smoke exposure: No Additional smoking assessment comments: Pt smokes cigarettes and marijuana. Pt has open conversations with MD Alcohol intake: former Substance use: current Substance use type: marijuana and opiates Other substance usage details: H/O OF OPIOID ABUSE--HAS BEEN TAKING BUPRENORPHINE FOR THE LAST 5 YEARS Last use: 07/07/20 Spiritual care concerns: No Comments At time of signature, agree with nursing past medical, surgical, social and family history. There is no relevant family history pertinent to the presenting complaint. Exam Const: General: cooperative, healthy appearing, comfortable, no acute distress and well nourished Nutritional Appearance: well nourished Orientation/consciousness: patient oriented x3 Limitations: no limitations HENMT: Head: normal to inspection, normocephalic and atraumatic Ears: external ears normal Face/Nose/Sinus: Normal external nose present, normal facial exam and face symmetric Face and sinus: normal facial exam, face symmetric, edema on the left mandible and fluctuance Face images: 1. area of fluctuance, no induration, erythema, or warmth. No op
== END 2022-12-17 09:20 | disposition home or self-care (01) ==
PROVIDERS: Emergency Provider Nurse Practitioner Family
DX: K04.7 Periapical abscess without sinus (principal); F17.210 Nicotine dependence, cigarettes, uncomplicated; Z98.811 Dental restoration status
CPT/HCPCS: 99213; G0463

== ENCOUNTER 2023-12-04 12:24 | Outpatient (CLI) | payer OTHER, SELFPAY ==
[2023-12-04 14:06] LABS: Basophils Percent Auto 0.1 % (0.2-1.2); Eosinophils Absolute Auto 0.1 K/mm3 (0-0.3); Eosinophils Percent Auto 0.8 % (0-4.4); Hematocrit 32.9 % (37.0-47.0); Immature Granulocyte Absolute 0.02 K/mm3 (0.00-0.031); Immature Granulocyte Percent A 0.2 % (0-0.5); Lymphocytes Absolute Auto 1.26 K/mm3 (0.9-3.2); Lymphocytes Percent Auto 13.7 % (18.3-44.2); Mean Corpuscular HGB Conc 33.4 g/dl (32-36); Mean Corpuscular Hemoglobin 30.7 pg (26-34); Mean Corpuscular Volume 91.9 fl (80-100); Mean Platelet Volume 10.6 fl (7.4-10.4); Monocytes Absolute Auto 0.4 K/mm3 (0.1-0.6); Monocytes Percent Auto 4.2 % (2.6-8.5); Neutrophils Absolute Auto 7.5 K/mm3 (1.3-6.7); Platelet Count Result 190 k/mm3 (150-375); Red Blood Count 3.58 M/mm3 (4.2-5.4); Red Cell Distribution Width 12.6 % (11.5-14.5); White Blood Count 9.2 K/mm3 (4.5-10.0)
[2023-12-04 18:33] LABS: Hepatitis B Surface Antigen Negative (Negative)
[2023-12-04 18:37] LABS: HIV 1/2 Ab P24 Ag Result Negative (Negative)
[2023-12-04 18:46] LABS: Hepatitis C Virus Antibody Negative (Negative)
[2023-12-04 21:05] LABS: Hemoglobin A1C 4.9 % (<5.7)
[2023-12-07 15:33] LABS: Rapid Plasma Reagin Non-Reactive (NonReactive)
== END 2023-12-04 12:25 | disposition home or self-care (01) ==
PROVIDERS: Visit Provider Obstetrics & Gynecology
DX: Z36.89 Encounter for other specified antenatal screening (principal); Z31.430 Encounter of female for testing for genetic disease carrier status for procreative management; Z36.0 Encounter for antenatal screening for chromosomal anomalies
CPT/HCPCS: 36415; 81220; 81243; 81420; 83036; 85025; 86592; 86703; 86762; 86803; 86850; 86900; 86901; 87340; 88264; 99212; G0432; G0463

== ENCOUNTER 2024-05-05 08:09 | Outpatient (CLI) | payer OTHER, SELFPAY ==
[2024-05-05 13:56] LABS: Hematocrit 35.2 % (37.0-47.0); Hemoglobin 11.5 g/dL (12.0-15.0)
[2024-05-05 14:07] LABS: Glucose 1 Hour PP 50gm Dose 72 mg/dL
[2024-05-05 14:48] LABS: HIV 1/2 Ab P24 Ag Result Negative (Negative)
== END 2024-05-05 08:10 | disposition home or self-care (01) ==
PROVIDERS: PCP Nurse Practitioner Family; Visit Provider Obstetrics & Gynecology
DX: O36.0130 Maternal care for anti-D [Rh] antibodies, third trimester, not applicable or unspecified (principal); Z3A.00 Weeks of gestation of pregnancy not specified
CPT/HCPCS: 36415; 82947; 85014; 85018; 86703; G0432

== ENCOUNTER 2024-05-25 18:17 | Inpatient (IN) | payer OTHER, SELFPAY ==
[2024-05-25] VITALS (79 sets, daily range): BP systolic 71–188; BP diastolic 35–173; PULSE 52–140; TEMP 36.4–37.1; O2SAT 94–100; BMI 27.5
[2024-05-25 20:16] LABS: Basophils Percent Auto 0.1 % (0.2-1.2); Eosinophils Percent Auto 0.1 % (0-4.4); Hemoglobin 12.7 g/dL (12.0-15.0); Immature Granulocyte Absolute 0.03 K/mm3 (0.00-0.031); Immature Granulocyte Percent A 0.3 % (0-0.5); Lymphocytes Absolute Auto 1.93 K/mm3 (0.9-3.2); Lymphocytes Percent Auto 18.6 % (18.3-44.2); Mean Corpuscular HGB Conc 34.3 g/dl (32-36); Mean Corpuscular Hemoglobin 30.6 pg (26-34); Mean Corpuscular Volume 89.2 fl (80-100); Mean Platelet Volume 12.6 fl (7.4-10.4); Monocytes Absolute Auto 0.8 K/mm3 (0.1-0.6); Monocytes Percent Auto 7.3 % (2.6-8.5); Neutrophils Absolute Auto 7.6 K/mm3 (1.3-6.7); Neutrophils Percent Auto 73.6 % (45.5-73.1); Platelet Count Result 188 k/mm3 (150-375); Red Blood Count 4.15 M/mm3 (4.2-5.4); Red Cell Distribution Width 13.1 % (11.5-14.5); White Blood Count 10.4 K/mm3 (4.5-10.0)
[2024-05-25] MEDS: ONDANSETRON INJ 4 MG/2 ML VIAL IV PUSH (20:30)
--- NOTE | 2024-05-25 20:39 | WPDANESEPP ---
Anes - Eval Pre Procedure Procedure: labor epidural Date/Time: 05/25/24 20:39 Surgeon: melissa Preop Diagnosis: pain during labor Pre Op Diagnosis: Labor Patient Data Age: 28 Gender: F Height: Weight: Last Vital Signs Pulse 59 L 05/25/24 20:38 BP 114/52 L 05/25/24 20:38 Pulse Ox 100 05/25/24 20:36 Allergies Allergy/AdvReac Type Severity Reaction Status Date / Time No Known Allergies Allergy Verified 12/17/22 08:58 Home Medications Medication Instructions Recorded Confirmed Type prenat.vits,sunil,non-xcux-ebyje 1 tablet 05/12/24 History sertraline 50 mg tablet 50 mg PO DAILY 05/12/24 05/12/24 History Laboratory Tests 05/25/24 20:11 WBC 10.4 H K/mm3 (4.5-10.0) RBC 4.15 L M/mm3 (4.2-5.4) Hgb 12.7 g/dL (12.0-15.0) Hct 37.0 % (37.0-47.0) MCV 89.2 fl (80-100) MCH 30.6 pg (26-34) MCHC 34.3 g/dl (32-36) RDW 13.1 % (11.5-14.5) Plt Count 188 k/mm3 (150-375) MPV 12.6 H fl (7.4-10.4) Immature Gran % (Auto) 0.3 % (0-0.5) Neut % (Auto) 73.6 H % (45.5-73.1) Lymph % (Auto) 18.6 % (18.3-44.2) Lane % (Auto) 7.3 % (2.6-8.5) Eos % (Auto) 0.1 % (0-4.4) Baso % (Auto) 0.1 L % (0.2-1.2) Lymph # (Auto) 1.93 K/mm3 (0.9-3.2) Lane # (Auto) 0.8 H K/mm3 (0.1-0.6) Eos # (Auto) 0.0 K/mm3 (0-0.3) Baso # (Auto) 0.0 K/mm3 (0.0-0.1) Abs Immat Gran (auto) 0.03 K/mm3 (0.00-0.031) Absolute Neuts (auto) 7.6 H K/mm3 (1.3-6.7) Absolute Nucleated RBC 0.000 K/mm3 (0.0-0.012) Nucleated RBC % 0.0 % (0.0-0.2) RPR Pending HIV 1&2 Ab/P24 Ag 4thGn Pending Patient hx anesthesia problems: none Family hx anesthesia problems: none Results Review: All pre-operative results and documents have been reviewed as part of the pre-operative evaluation. [facility] Past Medical History Medical History Anxiety History of opioid abuse Marijuana use Surgical History Surgical History No pertinent past surgical history Family History Family History Grandparent Diabetes mellitus Grandparent Crohn disease Grandparent Spinal stenosis Mother Spinal stenosis Social History Social History Smoking status: Current every day smoker Tobacco type: cigarettes Second hand tobacco smoke exposure: No Additional smoking assessment comments: Pt smokes cigarettes and marijuana. Pt has open conversations with Alcohol intake: former Substance use: never Substance use type: marijuana and opiates Other substance usage details: H/O OF OPIOID ABUSE--HAS BEEN TAKING BUPRENORPHINE FOR THE LAST 5 YEARS Last use: 07/07/20 Spiritual care concerns: No Exam Day of Procedure 05/25/24 20:39
[2024-05-25 21:06] LABS: HIV 1/2 Ab P24 Ag Result Negative (Negative)
[2024-05-25] MEDS: LACTATED RINGERS 1,000 ML 125 ML IV CONT ×2 (21:11→21:12)
--- NOTE | 2024-05-25 22:02 | LDADM ---
This patient, Tamika Garza, was admitted to Labor/Delivery/Recovery 105 on 05/25/24 at 18:17. Plans for labor, pain management and were discussed with patient. Patient/family oriented to hospital policies and general routines including ID bracelet, bed and alarms, visiting hours, pain management, procedures, bathroom and other care routines, personal items, smoking policy, room service/diet and guest tray routines, infant security routines, and visiting hours. Patient/Family are encouraged to report perceived risks to care and to ask questions if they do not understand what they are told or what they should do. See [facility] for further documentation.
[2024-05-25 22:27] LABS: Rapid Plasma Reagin Non-Reactive (NonReactive)
--- NOTE | 2024-05-25 23:43 | WPDOBADMIT ---
Obstetrics - Admit Note Admission Note: record reviewed. No pertinent additions to the history and/or any subsequent changes in the physical findings that are not consistent with the expected course of the were found. Additions to the history and/or subsequent changes in the physical findings follow. admit in labor, anticipate vaginal delivery
--- NOTE | 2024-05-25 23:44 | PM.OBPRVD ---
OB - Vaginal Delivery Note Procedure Delivery date: 05/25/24 Delivery monitor: External FHT and External Uterine Route of delivery: Laceration Description: Superficial Delivery repair: vicryl Specimen: No Quantitative Blood Loss (ml): 80 Anesthesia type: Epidural Disposition: Floor Complications: None [place] Baby Date of : 05/25/24 Time of : 23:35 Gestational Age by Date: 38 gender: Female presentation: vertex position: Left Occiput Anterior Placenta delivery description: Spontaneous Cord Vessel Description: 3 Vessels score one minute: 8 score five minutes: 9 Narrative: mother and baby skin to skin in stable condition
[2024-05-26] VITALS (12 sets, daily range): BP systolic 106–127; BP diastolic 37–76; PULSE 50–71; RESP 16–18; TEMP 36.6–37.2; O2SAT 99–100
[2024-05-26] MEDS: OXYTOCIN 30 UNITS/NS 500 ML 30 UNITS/500 ML BAG 999 UNITS IV CONT (00:11)
[2024-05-26] MEDS: OXYTOCIN 30 UNITS/NS 500 ML 30 UNITS/500 ML BAG 125 UNITS IV CONT (00:12)
--- NOTE | 2024-05-26 02:05 | OBPPTRN ---
Patient transferred to post room #292 via w/c. Support person present. Oriented to unit, room, information board, rooming in, admission packet and security measures. Patient verbalizes understanding.
[2024-05-26] MEDS: MULTIVIT/MIN/PREN/FOL AC/IRON TABLET 1 TAB PO (06:56)
[2024-05-26] MEDS: DOCUSATE SODIUM 100 MG CAPSULE PO ×2 (06:56→16:23)
[2024-05-26 08:01] LABS: Hematocrit 33.9 % (37.0-47.0); Hemoglobin 10.5 g/dL (12.0-15.0)
[2024-05-26] MEDS: SERTRALINE HCL 25 MG TABLET PO (08:41)
--- NOTE | 2024-05-26 09:08 | PM.OBPNVD ---
OB - PN: Subj Subjective Date/time seen: 05/26/24 09:08 Interval history: Doing well, PPD#1 Pain well controlled Bleeding minimal Tolerating general diet OB - PN: Obj Data Labs 05/26/24 07:38 Labs: Laboratory Results - last 24 hr 05/25/24 05/26/24 20:11 07:38 WBC 10.4 H RBC 4.15 L Hgb 12.7 10.5 L Hct 37.0 33.9 L MCV 89.2 MCH 30.6 MCHC 34.3 RDW 13.1 Plt Count 188 MPV 12.6 H Immature Gran % (Auto) 0.3 Neut % (Auto) 73.6 H Lymph % (Auto) 18.6 [place] % (Auto) 7.3 Eos % (Auto) 0.1 Baso % (Auto) 0.1 L Lymph # (Auto) 1.93 [place] # (Auto) 0.8 H Eos # (Auto) 0.0 Baso # (Auto) 0.0 Abs Immat Gran (auto) 0.03 Absolute Neuts (auto) 7.6 H Absolute Nucleated RBC 0.000 Nucleated RBC % 0.0 RPR Non-reactive HIV 1&2 Ab/P24 Ag 4thGn Negative Blood Type A Positive Antibody Screen Negative OB - PN A/P Assessment and Plan (1) (spontaneous vaginal delivery): Code(s): O80 - Encounter for full-term uncomplicated delivery Status: Acute Plan day: 1 Plan: routine care Time Spent With Patient Time: Total time spent is greater than 50% in coordination of care (as documented) at patient's floor/unit and/or counseling patient: Review of Systems Review of Systems: All systems reviewed & are unremarkable except as noted in HPI and below Exam Const: General: comfortable and no acute distress Orientation/consciousness: patient oriented x3 Resp: Effort & Inspection: normal respiratory effort
[2024-05-26] MEDS: IBUPROFEN 600 MG TABLET PO ×2 (09:27→18:46)
[2024-05-26] MEDS: ACETAMINOPHEN 325 MG TABLET 650 MG PO ×2 (09:27→18:46)
--- NOTE | 2024-05-26 14:34 | WPDANLDPN2 ---
Anes-Prog Note L&D Date/Time: 05/26/24 14:34 Comfortable throughout: labor and delivery Neuraxial method: epidural Epidural/Spinal procedure site: clean & non-tender Neuro status: Neuro function grossly intact. Cardiovascular status: normal Respiratory status: normal Airway patency: baseline Mental status: baseline Post-Op hydration status: normal Vital Signs: Last Vital Signs Temp 37.1 C 05/26/24 12:22 Pulse 62 05/26/24 12:22 Resp 16 05/26/24 12:22 BP 119/55 L 05/26/24 12:22 Pulse Ox 100 05/26/24 12:22 O2 Del Method Room Air 05/26/24 02:30 Pain score (VAS): 3/10 I/O: Intake & Output 05/25/24 05/26/24 05/26/24 23:59 07:59 15:59 Intake Total 2.1 381.3 Output Total 80 Balance 2.1 301.3 Post-procedural complaints: none Patient feedback: Patient satisfied with anesthetic care.
[2024-05-27 04:18] VITALS: BP 107/60; PULSE 63; RESP 12; TEMP 36.4; O2SAT 100
[2024-05-27] MEDS: ACETAMINOPHEN 325 MG TABLET 650 MG PO (04:34)
[2024-05-27] MEDS: IBUPROFEN 600 MG TABLET PO (04:35)
[2024-05-27 08:25] VITALS: BP 116/66; PULSE 58; RESP 16; TEMP 36.4; O2SAT 100
[2024-05-27] MEDS: DOCUSATE SODIUM 100 MG CAPSULE PO (08:45)
[2024-05-27] MEDS: MULTIVIT/MIN/PREN/FOL AC/IRON TABLET 1 TAB PO (08:45)
[2024-05-27] MEDS: SERTRALINE HCL 25 MG TABLET PO (08:45)
--- NOTE | 2024-05-27 08:45 | PM.OBPNVD ---
OB - PN: Subj Subjective Date/time seen: 05/27/24 08:45 Interval history: Doing well, PPD#2 Pain well controlled Bleeding minimal Tolerating general diet ready for discharge home today OB - PN: Obj Data Labs 05/26/24 07:38 OB - PN A/P Assessment and Plan (1) (spontaneous vaginal delivery): Code(s): O80 - Encounter for full-term uncomplicated delivery Status: Acute Plan day: 1 Plan: routine care and discharge home Time Spent With Patient Time: Total time spent is greater than 50% in coordination of care (as documented) at patient's floor/unit and/or counseling patient: Review of Systems Review of Systems: All systems reviewed & are unremarkable except as noted in HPI and below Exam Const: General: comfortable and no acute distress Orientation/consciousness: patient oriented x3 Resp: Effort & Inspection: normal respiratory effort
[2024-05-28 09:17] VITALS: BP 118/65; PULSE 55; RESP 18; TEMP 36.7; O2SAT 100
== END 2024-05-27 13:25 | disposition home or self-care (01) | DRG 807 ==
LOC: ANHLDR 21:13 → ANHOB2 05-26 02:30
PROVIDERS: Admitting Provider Advanced Practice Midwife; PCP Nurse Practitioner Family; Visit Provider Obstetrics & Gynecology
DX: O62.3 Precipitate labor (principal); Z37.0 Single live birth; O70.0 First degree perineal laceration during delivery; Z3A.39 39 weeks gestation of pregnancy
CPT/HCPCS: 36415; 85014; 85018; 85025; 86592; 86703; 86850; 86900; 86901; A9270; G0432; J2405; J2590; J2795; J7120